=== PATIENT | male | born 1935 | race Caucasian/White ===

== ENCOUNTER 2019-11-16 08:24 | Emergency (ER) | payer MEDICARE ==
[2019-11-16 09:23] VITALS: BP 145/78; PULSE 81
[2019-11-16] MEDS ORDERED: Albuterol/Ipratropium 3.0-0.5 MG/3 ML Neb Soln NEB PRN (09:35)
--- NOTE | 2019-11-16 10:33 | CR ---
DATE OF SERVICE: 11/16/2019 CLINICAL DATA: shortness of breath PA and lateral chest: The comparison is made to a prior exam dated 16 April 2016. Heart size is normal. There is a calcification in the region of the mitral valve annulus. The cardiac pacer and pacer wires remain unchanged in position. The pulmonary vasculature appears more prominent than on the prior exam suggesting pulmonary venous congestion or fluid overload. The proximal pulmonary arteries are also prominent suggesting pulmonary hypertension. There is poorly defined ground-glass opacity in the right hilar region and right lung base suspicious for pneumonia/pneumonitis. Viral pneumonia should be considered. There are linear densities in both lower lungs consistent with linear atelectasis or fibrosis. There is thickening of the minor fissure on the right. No pneumothorax. No significant pleural effusion. The exam is otherwise unchanged from the prior. Dictated by: Stanislaw Mckeon MD 11/16/2019 10:24 AM [facility]
--- NOTE | 2019-11-16 10:48 | EDM.PDOC ---
ED HPI GENERAL MEDICAL PROBLEM - General Chief Complaint: General Stated Complaint: SOB Time Seen by Provider: 11/16/19 09:40 Source of Information: Reports: Patient History Limitations: Reports: No Limitations - History of Present Illness Onset: Other (2 days ago) Onset Date: 11/14/19 Duration: Day(s): (2 days), Getting Worse Location: Reports: Chest Quality: Reports: Other (slight tightness with breathing) Severity: Mild Improves with: Reports: None Worsens with: Reports: None Associated Symptoms: Reports: Cough, Shortness of Breath. 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 - Related Data Allergies Allergy/AdvReac Type Severity Reaction Status Date / Time Influenza Virus Vaccines Allergy Cannot Verified 04/16/16 19:48 Remember Penicillins Allergy Nausea Verified 04/16/16 19:48 Home Meds: Home Meds Aspirin [Aspirin EC] 975 mg PO DAILY PRN 02/19/13 [History] Torsemide [Demadex] 10 mg PO DAILY 30 Days #30 tablet 11/16/19 [Rx] Past Medical History HEENT History: Reports: Hard of Hearing, Impaired Vision 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, Pacemaker Respiratory History: Reports: COPD, SOB Gastrointestinal History: Reports: Chronic Diarrhea, GERD Musculoskeletal History: Reports: Osteoarthritis Neurological History: Reports: Headaches, Chronic Hematologic History: Reports: Anemia - Infectious Disease History Infectious Disease History: Reports: Chicken Pox, Influenza - Past Surgical History Musculoskeletal Surgical History: Reports: Shoulder Replacement, Shoulder Surgery Social & Family History - Family History Family Medical History: Noncontributory - Tobacco Use Smoking Status *Q: Never Smoker Second Hand Smoke Exposure: No - Caffeine Use Caffeine Use: Reports: Coffee - Recreational Drug Use Recreational Drug Use: No ED ROS GENERAL - Review of Systems Review Of Systems: See Below Constitutional: Denies: Fever, Chills, Malaise, Diaphoresis HEENT: Denies: No Symptoms Respiratory: Reports: Shortness of Breath, Cough, Sputum. Denies: Wheezing, Pleuritic Chest Pain, Hemoptysis Cardiovascular: Denies: Chest Pain, Lightheadedness GI/Abdominal: Denies: Abdominal Pain, Black Stool, Constipation, Diarrhea, Nausea, Vomiting : Denies: Flank Pain, Frequency Musculoskeletal: Reports: No Symptoms Skin: Denies: Rash, Erythema Neurological: Denies: Confusion, Headache Psychiatric: Reports: No Symptoms Hematologic/Lymphatic: Reports: No Symptoms Immunologic: Reports: No Symptoms ED EXAM, GENERAL - Physical Exam Exam: See Below Exam Limited By: No Limitations General Appearance: Alert, No Apparent Distress Ears: Normal External Exam, Normal Canal, Hearing Grossly Normal, Normal TMs Nose: Normal Inspection, Normal Mucosa Throat/Mouth: Normal Inspection, Normal Lips, Normal Gums, Normal Voice, No Airway Compromise Head: Atraumatic, Normocephalic Neck: Normal Inspection, Supple, Non-Tender, Other (NO jvd) Respiratory/Chest: No Respiratory Distress, Lungs Clear, Normal Breath Sounds, No Accessory Muscle Use, Chest Non-Tender Cardiovascular: Normal Peripheral Pulses, Regular Rate, Rhythm, Systolic Murmur GI/Abdominal: Soft, Non-Tender, No Distention, No Mass Back Exam: Normal Inspection. No: CVA Tenderness (R) Extremities: Normal Inspection, Non-Tender, No Pedal Edema Neurological: Alert, Oriented, Normal Cognition, Normal Gait, No Motor/Sensory Deficits Psychiatric: Normal Affect, Normal Mood Skin Exam: Warm, Dry, Intact, No Rash EKG INTERPRETATION EKG Date: 11/16/19 Time: 10:50 Rhythm: Other (Paced rhythm) Course - Vital Signs Last Recorded V/S: Last Vital Signs Temp 97.7 F 11/16/19 09:23 Pulse 81 11/16/19 09:23 Resp 16 11/16/19 09:23 BP 145/78 H 11/16/19 09:23 Pulse Ox 94 L 11/16/19 09:23 - Orders/Labs/Meds Labs: Laboratory Tests 11/16/19 11/16/19 11/16/19 Range/Units 08:45 09:45 09:45 WBC 10.8 (4.0-11.0) K/uL RBC 4.90 (4.50-6.50) M/uL Hgb 14.8 (13.0-18.0) g/dL Hct 42.7 (40.0-54.0) % MCV 87 (76-96) fL MCH 30.2 (27.0-32.0) pg MCHC 34.7 (31.0-35.0) g/dL RDW 12.7 (11.0-16.0) % Plt Count 176 D (150-400) K/uL MPV 9.4 (6.0-10.0) fL Neut % (Auto) 80.6 H (45.0-70.0) % Lymph % (Auto) 9.0 L (20.0-40.0) % Scurry % (Auto) 7.1 (3.0-10.0) % Eos % (Auto) 3.0 (1.0-5.0) % Baso % (Auto) 0.3 (0.0-0.5) % Neut # (Auto) 8.69 H (2.00-7.50) K/uL Lymph # (Auto) 0.97 L (1.50-4.00) K/uL Scurry # (Auto) 0.77 (0.20-0.80) K/uL Eos # (Auto) 0.32 (0.04-0.40) K/uL Baso # (Auto) 0.03 (0.02-0.10) K/uL Sodium 141 (136-145) mmol/L Potassium 4.5 (3.5-5.1) mmol/L Chloride 106 (98-107) mmol/L Carbon Dioxide 25.7 (21.0-32.0) mmol/L Anion Gap 13.8 (5.0-15.0) mmol/L BUN 14 (8-26) mg/dL Creatinine 1.02 (0.70-1.30) mg/dL Est Cr Clr Drug Dosing TNP Estimated GFR (MDRD) > 60 (>60) MLS/MIN BUN/Creatinine Ratio 13.7 (6-25) Glucose 107 H (74-100) mg/dL Calcium 8.1 L (8.5-10.1) mg/dL Troponin I (0.000-0.060) ng/mL B-Natriuretic Peptide 1737 H D (0-450) pg/mL COVID-19 (ELEANOR) Negative 11/16/19 Range/Units 10:48 WBC (4.0-11.0) K/uL RBC (4.50-6.50) M/uL Hgb (13.0-18.0) g/dL Hct (40.0-54.0) % MCV (76-96) fL MCH (27.0-32.0) pg MCHC (31.0-35.0) g/dL RDW (11.0-16.0) % Plt Count (150-400) K/uL MPV (6.0-10.0) fL Neut % (Auto) (45.0-70.0) % Lymph % (Auto) (20.0-40.0) % Scurry % (Auto) (3.0-10.0) % Eos % (Auto) (1.0-5.0) % Baso % (Auto) (0.0-0.5) % Neut # (Auto) (2.00-7.50) K/uL Lymph # (Auto) (1.50-4.00) K/uL Scurry # (Auto) (0.20-0.80) K/uL Eos # (Auto) (0.04-0.40) K/uL Baso # (Auto) (0.02-0.10) K/uL Sodium (136-145) mmol/L Potassium (3.5-5.1) mmol/L Chloride (98-107) mmol/L Carbon Dioxide (21.0-32.0) mmol/L Anion Gap (5.0-15.0) mmol/L BUN (8-26) mg/dL Creatinine (0.70-1.30) mg/dL Est Cr Clr Drug Dosing Estimated GFR (MDRD) (>60) MLS/MIN BUN/Creatinine Ratio (6-25) Glucose (74-100) mg/dL Calcium (8.5-10.1) mg/dL Troponin I < 0.017 (0.000-0.060) ng/mL B-Natriuretic Peptide (0-450) pg/mL COVID-19 (ELEANOR) Meds: Medications Discontinued Medications Generic Name Dose Route Start Last Admin Trade Name Freq PRN Reason Stop Dose Admin Albuterol/Ipratropium 3 ml 11/16/19 09:35 11/16/19 10:00 Duoneb 3.0-0.5 Mg/3 Ml NEB 11/16/19 23:59 3 ml Q2H PRN Administration Shortness of Breath Torsemide 10 mg 11/16/19 11:00 11/16/19 11:08 Demadex PO 10 mg DAILY SUELLEN Administration - Radiology Interpretation Free Text/Narrative:: See report with pulmonary vasculature with more prominence than prior exam suggesting venous congestion or fluid overload. Prominent pulmonary arteries suggesting pulmonary hyptertension. Suspicious for pneumonia /pneumonitis . Atelectasis vs fibrosis in lower lung bradley. - Re-Assessments/Exams Free Text/Narrative Re-Assessment/Exam: 11/16/19 12:16 [place] [facility] patient was stable .CXR consistent with early pneumonia and mild CHF by my reading. Slight elevation of neutrophil count . Elevated BMP consistent with mild CHF Patient treated with Duo neb with minimal relief of symptoms Will start Trosemide 10 mg po daily Zithromax Z pack and follow up with clinic next week Potassium level prior to appt Order sent to lab Appt made for next week Departure - Departure Time of Disposition: 11:01 Disposition: Home, Self-Care 01 Condition: Good (Acute bronhitis) Clinical Impression: CHF, Congestive heart failure, Bronchitis - Discharge Information *PRESCRIPTION DRUG MONITORING PROGRAM REVIEWED*: Not Applicable *COPY OF PRESCRIPTION DRUG MONITORING REPORT IN PATIENT ALEXANDER: Not Applicable Prescriptions: Torsemide [Demadex] 10 mg PO DAILY 30 Days #30 tablet Instructions: Heart Failure, Self Care, Heart Failure, Self Care, [id number], Acute Bronchitis, Adult, [id number] Referrals: PCP,None [Primary Care Provider] - Forms: ED Department Discharge Additional Instructions: Diagnosis Acute Bronchitis possible early pneumonia Congestive heart failure mild PLan Will treat you with Zithromax an antibiotic . Take 2 tablets on the first day than 1 tablet daily for 4 more days Will also start a water pill. You need to take this water pill until discontinued by your regular MD Have your potassium checked next week in clinic during follow up visit next Wednesday. Return for increasing SOB or chest pain or other worsening The water pill lower your potassium level so you will need to have this checked at next visit to clinic Use your MDI 2 puff every 4-6 hours as needed for SOB/wheezing Care Plan Goals: Take medications as prescribed. Return to hospital or clinic if symptoms persist or worsen. Call with any questions or concerns. Sepsis Event Note (ED) - Evaluation Sepsis Screening Result: No Definite Risk
[2019-11-16] MEDS ORDERED: Torsemide 20 MG Tab PO SCH (11:00)
== END 2019-11-16 11:35 | disposition home or self-care (01) ==
LOC: LB.ED 08:24
DX: I50.9 Heart failure, unspecified (principal); J40 Bronchitis, not specified as acute or chronic; J44.9 Chronic obstructive pulmonary disease, unspecified; Z20.828 Contact with and (suspected) exposure to other viral communicable diseases; Z88.7 Allergy status to serum and vaccine; Z88.0 Allergy status to penicillin; Z79.82 Long term (current) use of aspirin
CPT/HCPCS: 36415; 71046; 80048; 83880; 84484; 85025; 93005; 99285; A9270; U0002; J7620-GY

== ENCOUNTER 2020-02-24 19:41 | Emergency (ER) | payer MEDICARE ==
[~2020-02-24 19:41] MED LIST: Ondansetron 4 MG Tab.DIS ONE
[2020-02-24] MEDS: Ketorolac 30 MG/ML SDV IM ONE (21:13)
--- NOTE | 2020-02-24 21:23 | EDM.PDOC ---
ED HPI GENERAL MEDICAL PROBLEM - General Chief Complaint: Respiratory Problem Stated Complaint: dyspnea Time Seen by Provider: 02/24/20 21:00 Source of Information: Reports: Patient History Limitations: Reports: No Limitations - History of Present Illness INITIAL COMMENTS - FREE TEXT/NARRATIVE: Patient is an 85 y/o male who presents with a frontal headache x 2 days and one episode of vomiting yesterday. He denies any fever, chills, sweats, nausea, abdominal pain, SOB, chest pain, or abd pain. He took an OTC medicine for his headache which improved it significantly. No known exposure to COVID positive contacts. - Related Data Allergies Allergy/AdvReac Type Severity Reaction Status Date / Time Influenza Virus Vaccines Allergy Cannot Verified 02/24/20 21:07 Remember Penicillins Allergy Nausea Verified 02/24/20 21:07 Home Meds: Home Meds Albuterol Sulfate [Albuterol Sulfate Hfa] 1 - 2 puff IH DAILY 02/24/20 [History] Past Medical History HEENT History: Reports: Hard of Hearing, Impaired Vision 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, Pacemaker Respiratory History: Reports: COPD, SOB Gastrointestinal History: Reports: Chronic Diarrhea, GERD Musculoskeletal History: Reports: Osteoarthritis Neurological History: Reports: Headaches, Chronic Hematologic History: Reports: Anemia - Infectious Disease History Infectious Disease History: Reports: Chicken Pox, Influenza - Past Surgical History Musculoskeletal Surgical History: Reports: Shoulder Replacement, Shoulder Surgery Social & Family History - Family History Family Medical History: No Pertinent Family History - Caffeine Use Caffeine Use: Reports: Coffee ED ROS GENERAL - Review of Systems Review Of Systems: See Below Constitutional: Reports: No Symptoms HEENT: Reports: No Symptoms Respiratory: Reports: No Symptoms Cardiovascular: Reports: No Symptoms GI/Abdominal: Reports: Vomiting : Reports: No Symptoms Musculoskeletal: Reports: No Symptoms Skin: Reports: No Symptoms Neurological: Reports: Headache ED EXAM, GENERAL - Physical Exam Exam: See Below Exam Limited By: No Limitations General Appearance: Alert, No Apparent Distress Eye Exam: Bilateral Eye: EOMI, PERRL Head: Atraumatic, Normocephalic Neck: Normal Inspection, Supple, Non-Tender, Full Range of Motion Respiratory/Chest: No Respiratory Distress, Lungs Clear, Normal Breath Sounds, No Accessory Muscle Use, Chest Non-Tender Cardiovascular: Normal Peripheral Pulses, Regular Rate, Rhythm, No Edema, No Murmur GI/Abdominal: Normal Bowel Sounds, Soft, Non-Tender, No Distention Neurological: Alert, Oriented, CN II-XII Intact, Normal Cognition, Normal Gait, No Motor/Sensory Deficits Psychiatric: Normal Affect, Normal Mood Skin Exam: Warm, Dry, Intact, Normal Color, No Rash Course - Vital Signs Text/Narrative:: toradol 15 mg IM given. Patient sent home with zofran for any nausea/vomiting. Return to the ED for fever >102, unable to tolerate fluids, or difficulty breathing/swallowing. - Orders/Labs/Meds Labs: Laboratory Tests 02/24/20 Range/Units 20:23 SARS CoV-2 RNA Rapid ELEANOR Negative Meds: Medications Discontinued Medications Generic Name Dose Route Start Last Admin Trade Name Freq PRN Reason Stop Dose Admin Ketorolac Tromethamine 15 mg 02/24/20 21:13 Toradol IM 02/24/20 21:14 ONETIME ONE Departure - Departure Time of Disposition: 21:21 Disposition: Home, Self-Care 01 Condition: Good Clinical Impression: Headache Qualifiers: Headache type: unspecified Headache chronicity pattern: acute headache Intractability: not intractable Qualified Code(s): R51.9 - Headache, unspecified - Discharge Information *PRESCRIPTION DRUG MONITORING PROGRAM REVIEWED*: Not Applicable *COPY OF PRESCRIPTION DRUG MONITORING REPORT IN PATIENT ALEXANDER: Not Applicable Instructions: Ondansetron oral dissolving tablet Forms: ED Department Discharge Additional Instructions: Take provided Zofran as instructed: 1 tablet dissolved under tongue every 6 hours as needed for nausea. Drink plenty of fluids (water, Gatorade) and get plenty of rest. Diet and activity as tolerated. Should symptoms worsen or persist, return for further evaluation and treatment. Do not take any ibuprofen or motrin until after 8am tomorrow morning. Call with any questions.
[2020-02-24 22:06] VITALS: BP 165/90; PULSE 77
== END 2020-02-24 21:20 | disposition home or self-care (01) ==
LOC: LB.ED 19:41
DX: R51.9 Headache, unspecified (principal); R11.10 Vomiting, unspecified; J44.9 Chronic obstructive pulmonary disease, unspecified; Z88.0 Allergy status to penicillin; Z88.7 Allergy status to serum and vaccine
CPT/HCPCS: 96372; 99284; A9270-GY; J1885; U0002

== ENCOUNTER 2020-03-30 11:49 | Emergency (ER) | payer MEDICARE ==
[2020-03-30] MEDS: Nitroglycerin 0.4 MG Tab.SL SL ONE (12:25)
[2020-03-30] MEDS ORDERED: Nitroglycerin 0.4 MG Tab.SL ONE (12:40)
--- NOTE | 2020-03-30 13:05 | EDM.PDOC ---
ED HPI GENERAL MEDICAL PROBLEM - General Chief Complaint: Chest Pain Stated Complaint: Chest Pain Time Seen by Provider: 03/30/20 12:35 Source of Information: Reports: Patient History Limitations: Reports: No Limitations - History of Present Illness INITIAL COMMENTS - FREE TEXT/NARRATIVE: patient presented to the ER with a c/o chest discomfort and dyspnea. no h/o CAD or stents in the past. 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 no fever or chills. Reports this occurred after brunch, on his way to his couch. Pain described as burning sensation for which he took Tums, didn't help much. After arrival to the ER, his pain resolved after a nitro SL x1 He lives at home with . Denies any chronic medical problems, except for pacemaker placement 10 yrs ago after an episode of syncope. Onset: Today - Related Data Allergies Allergy/AdvReac Type Severity Reaction Status Date / Time Influenza Virus Vaccines Allergy Cannot Verified 02/24/20 21:07 Remember Penicillins Allergy Nausea Verified 02/24/20 21:07 Home Meds: Home Meds Albuterol Sulfate [Albuterol Sulfate Hfa] 1 - 2 puff IH DAILY 02/24/20 [History] Past Medical History HEENT History: Reports: Hard of Hearing, Impaired Vision 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, Pacemaker Respiratory History: Reports: COPD, SOB Gastrointestinal History: Reports: Chronic Diarrhea, GERD Musculoskeletal History: Reports: Osteoarthritis Neurological History: Reports: Headaches, Chronic Hematologic History: Reports: Anemia - Infectious Disease History Infectious Disease History: Reports: Chicken Pox, Influenza - Past Surgical History Musculoskeletal Surgical History: Reports: Shoulder Replacement, Shoulder Surgery Social & Family History - Family History Family Medical History: No Pertinent Family History - Caffeine Use Caffeine Use: Reports: Coffee ED ROS GENERAL - Review of Systems Review Of Systems: See Below Constitutional: Reports: No Symptoms. Denies: Fever, Chills, Malaise HEENT: Reports: No Symptoms Respiratory: Reports: Shortness of Breath Cardiovascular: Reports: Chest Pain, Dyspnea on Exertion. Denies: Edema, Palpitations, Syncope GI/Abdominal: Reports: No Symptoms Skin: Reports: No Symptoms Neurological: Reports: No Symptoms ED EXAM, GENERAL - Physical Exam Exam: See Below Exam Limited By: No Limitations General Appearance: Alert, WD/WN, No Apparent Distress Eye Exam: Bilateral Eye: EOMI Throat/Mouth: Normal Inspection Head: Atraumatic, Normocephalic Neck: Normal Inspection Cardiovascular: Normal Peripheral Pulses, Regular Rate, Rhythm, No Edema Back Exam: Normal Inspection Neurological: Alert, Oriented, Normal Cognition, No Motor/Sensory Deficits Psychiatric: Normal Affect, Normal Mood Skin Exam: Warm Course - Vital Signs Last Recorded V/S: Last Vital Signs Temp 36.5 C 03/30/20 12:20 Pulse 66 03/30/20 12:20 Resp 28 H 03/30/20 12:20 BP 144/77 H 03/30/20 12:25 Pulse Ox 95 03/30/20 12:20 - Orders/Labs/Meds Orders: Active Orders 24 hr Category Date Time Status EKG Documentation Completion [RC] ASDIRECTED Care 03/30/20 12:37 Active RT Aerosol Therapy [RC] ASDIRECTED Care 03/30/20 12:56 Active Chest 1V Frontal [CR] Stat Exams 03/30/20 12:36 Taken Labs: Laboratory Tests 03/30/20 03/30/20 03/30/20 Range/Units 12:36 12:36 13:30 WBC 8.6 D (4.0-11.0) K/uL RBC 5.03 (4.50-6.50) M/uL Hgb 14.7 (13.0-18.0) g/dL Hct 42.5 (40.0-54.0) % MCV 85 (76-96) fL MCH 29.2 (27.0-32.0) pg MCHC 34.6 (31.0-35.0) g/dL RDW 12.6 (11.0-16.0) % Plt Count 187 (150-400) K/uL MPV 10.3 H (6.0-10.0) fL D-Dimer, Quantitative 261 (0-400) ng/mL Sodium 140 (136-145) mmol/L Potassium 4.4 (3.5-5.1) mmol/L Chloride 105 (98-107) mmol/L Carbon Dioxide 27.4 (21.0-32.0) mmol/L Anion Gap 12.0 (5.0-15.0) mmol/L BUN 19 (8-26) mg/dL Creatinine 1.22 (0.70-1.30) mg/dL Est Cr Clr Drug Dosing TNP Estimated GFR (MDRD) 56 L (>60) MLS/MIN BUN/Creatinine Ratio 15.6 (6-25) Glucose 125 H D (74-100) mg/dL Calcium 9.0 (8.5-10.1) mg/dL Total Bilirubin 0.6 (0.0-1.0) mg/dL AST 40 H (15-37) U/L ALT 78 (12-78) U/L Alkaline Phosphatase 60 (46-116) U/L Troponin I < 0.017 (0.000-0.060) ng/mL Total Protein 6.6 (6.4-8.2) g/dL Albumin 3.8 (3.4-5.0) g/dL Globulin 2.8 (2.2-4.2) g/dL Albumin/Globulin Ratio 1.4 (0.8-2.0) 03/30/20 Range/Units 15:30 WBC (4.0-11.0) K/uL RBC (4.50-6.50) M/uL Hgb (13.0-18.0) g/dL Hct (40.0-54.0) % MCV (76-96) fL MCH (27.0-32.0) pg MCHC (31.0-35.0) g/dL RDW (11.0-16.0) % Plt Count (150-400) K/uL MPV (6.0-10.0) fL D-Dimer, Quantitative (0-400) ng/mL Sodium (136-145) mmol/L Potassium (3.5-5.1) mmol/L Chloride (98-107) mmol/L Carbon Dioxide (21.0-32.0) mmol/L Anion Gap (5.0-15.0) mmol/L BUN (8-26) mg/dL Creatinine (0.70-1.30) mg/dL Est Cr Clr Drug Dosing Estimated GFR (MDRD) (>60) MLS/MIN BUN/Creatinine Ratio (6-25) Glucose (74-100) mg/dL Calcium (8.5-10.1) mg/dL Total Bilirubin (0.0-1.0) mg/dL AST (15-37) U/L ALT (12-78) U/L Alkaline Phosphatase (46-116) U/L Troponin I < 0.017 (0.000-0.060) ng/mL Total Protein (6.4-8.2) g/dL Albumin (3.4-5.0) g/dL Globulin (2.2-4.2) g/dL Albumin/Globulin Ratio (0.8-2.0) Meds: Medications Discontinued Medications Generic Name Dose Route Start Last Admin Trade Name Freq PRN Reason Stop Dose Admin Albuterol/Ipratropium 3 ml 03/30/20 12:55 03/30/20 13:12 Duoneb 3.0-0.5 Mg/3 Ml NEB 03/30/20 12:56 3 ml NOW STA Administration Aspirin 162 mg 03/30/20 12:55 03/30/20 13:12 Aspirin PO 03/30/20 12:56 162 mg NOW STA Administration Nitroglycerin 0.4 mg 03/30/20 12:56 03/30/20 12:25 Nitrostat SL 03/30/20 12:57 0.4 mg ONETIME ONE Administration - Re-Assessments/Exams Free Text/Narrative Re-Assessment/Exam: upon arrival, was connected to a monitor EKG acute ischemic changes but findings c/w pacemaker NTG SL was given - symptoms resolved CXR WNL Labs including trop - negative patient was monitored in the ER, and a neb was given due to a h/o COPD and SOB. Trop was trended x2 - still WNL, and patient is asymptomatic. Ambulated 200ft in the ER, no SOB, CP or hypoxia. was d/cd home with the plan to discuss a stress test with PCP. Also was prescribed nitro-SL PRN CP. Departure - Departure Time of Disposition: 16:54 Disposition: Home, Self-Care 01 Condition: Good Clinical Impression: Angina pectoris without myocardial infarction Instructions: Angina, [id number] Forms: ED Department Discharge Additional Instructions: - take 2 tabs of aspirin on a daily basis - follow up with your PCP in 1-2 weeks - discuss obtaining a stress test - take nitro glycerin as needed for chest pain. wait for 5 min before taking another one. Then call 911 or come to the ER if chest pain persisted Sepsis Event Note (ED) - Focused Exam Vital Signs: Vital Signs Temp Pulse Resp BP BP Pulse Ox 03/30/20 12:25 144/77 H 03/30/20 12:20 36.5 C 66 28 H 144/77 H 95 - Problem List & Annotations (1) Angina pectoris without myocardial infarction SNOMED Code(s): 166951820 Code(s): I20.9 - ANGINA PECTORIS, UNSPECIFIED Status: Acute Priority: Low - Problem List Review Problem List Initiated/Reviewed/Updated: Yes - My Orders Last 24 Hours: My Active Orders 03/30/20 12:36 Chest 1V Frontal [CR] Stat 03/30/20 12:37 EKG Documentation Completion [RC] ASDIRECTED 03/30/20 12:56 RT Aerosol Therapy [RC] ASDIRECTED - Assessment/Plan Last 24 Hours: My Active Orders 03/30/20 12:36 Chest 1V Frontal [CR] Stat 03/30/20 12:37 EKG Documentation Completion [RC] ASDIRECTED 03/30/20 12:56 RT Aerosol Therapy [RC] ASDIRECTED Plan: - take 2 tabs of aspirin on a daily basis - follow up with your PCP in 1-2 weeks - discuss obtaining a stress test - take nitro glycerin as needed for chest pain. wait for 5 min before taking another one. Then call 911 or come to the ER if chest pain persisted
[2020-03-30] MEDS: Albuterol/Ipratropium 3.0-0.5 MG/3 ML Neb Soln NEB STA (13:12)
[2020-03-30] MEDS: Aspirin 81 MG Tab.Chew PO STA (13:12)
[2020-03-30 13:13] VITALS: BP 144/77
[2020-03-30 13:14] VITALS: PULSE 66
--- NOTE | 2020-03-30 17:33 | CR ---
CLINICAL DATA: Chest pain. AP CHEST, 30 MARCH 2020: Comparison is made to a prior exam dated 13 March 2020. A cardiac pacer and pacer wires remain unchanged in position. The heart size is normal. There is calcification in the region of the mitral valve annulus. There is calcification at the aortic arch. The pulmonary vasculature does appear to be slightly more prominent than on the prior exam, suggesting mild pulmonary venous congestion. There is a persistent poorly defined ground-glass opacity lateral to the right hilum, unchanged. The lungs are otherwise unchanged. No pneumothorax. No pleural effusions. Job: [id number] MTDD
== END 2020-03-30 17:12 | disposition home or self-care (01) ==
LOC: LB.ED 11:49
DX: I20.9 Angina pectoris, unspecified (principal); J44.9 Chronic obstructive pulmonary disease, unspecified; Z88.7 Allergy status to serum and vaccine; Z88.0 Allergy status to penicillin
CPT/HCPCS: 36415; 71045; 80053; 84484; 85027; 85379; 93005; 99284; 99285-25; A9270-GY; J7620-GY

== ENCOUNTER 2020-11-20 11:26 | Emergency (ER) | payer MEDICARE ==
[2020-11-20 12:25] VITALS: BP 111/61; PULSE 73
--- NOTE | 2020-11-20 14:20 | EDM.PDOC ---
ED HPI GENERAL MEDICAL PROBLEM - General Chief Complaint: Respiratory Problem Stated Complaint: SHORTNESS OF BREATH Time Seen by Provider: 11/20/20 11:43 Source of Information: Reports: Patient History Limitations: Reports: No Limitations - History of Present Illness Onset: Gradual Duration: Getting Worse - Related Data Allergies Allergy/AdvReac Type Severity Reaction Status Date / Time Influenza Virus Vaccines Allergy Cannot Verified 02/24/20 21:07 Remember Penicillins Allergy Nausea Verified 02/24/20 21:07 Home Meds: Home Meds Albuterol Sulfate [Albuterol Sulfate Hfa] 1 - 2 puff IH DAILY 02/24/20 [History] Acetaminophen [Tylenol] 650 mg PO DAILY PRN 05/10/20 [History] Ascorbic Acid [Vitamin C] 1 cap PO DAILY 05/10/20 [History] Aspirin 81 mg PO DAILY 05/10/20 [History] Aspirin [Lite Coat Aspirin] 325 mg PO DAILY PRN 05/10/20 [History] Betamethasone/Propylene Glyc [Betamethasone DP Aug 0.05%] 1 applic TRDERM DAILY 05/10/20 [History] Cholecalciferol (Vitamin D3) [Vitamin D] 5,000 unit PO DAILY 05/10/20 [History] Cyanocobalamin (Vitamin B12) [Vitamin B12] 1 cap PO DAILY 05/10/20 [History] Furosemide 20 mg PO DAILY 05/10/20 [History] Glucosam/Chond-Msm1/C/Donta/Bor [Fhsuadv-Hbyuj-LTU Complex Cplt] 1 tab PO DAILY 05/10/20 [History] Isosorbide Mononitrate [Imdur] 30 mg PO DAILY 05/10/20 [History] Multivit with Iron,Minerals [Flintstones Complete] 1 cap PO DAILY 05/10/20 [History] [place]-3/DHA/Epa/Fish Oil [Fish Oil EC 1,000 MG Softgel] 1 cap PO DAILY 05/10/20 [History] Vitamin E 1 cap PO DAILY 05/10/20 [History] Azithromycin [Zithromax] 250 mg PO DAILY 5 Days #6 tab 11/20/20 [Rx] Past Medical History HEENT History: Reports: Hard of Hearing, Impaired Vision 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, Pacemaker Other Cardiovascular History: CHF Respiratory History: Reports: COPD, SOB Gastrointestinal History: Reports: Chronic Diarrhea, GERD Musculoskeletal History: Reports: Osteoarthritis Neurological History: Reports: Headaches, Chronic Hematologic History: Reports: Anemia - Infectious Disease History Infectious Disease History: Reports: Chicken Pox, Influenza - Past Surgical History Musculoskeletal Surgical History: Reports: Shoulder Replacement, Shoulder Surgery Social & Family History - Family History Family Medical History: No Pertinent Family History - Caffeine Use Caffeine Use: Reports: Coffee ED ROS GENERAL - Review of Systems Review Of Systems: See Below Constitutional: Denies: Fever HEENT: Reports: No Symptoms Respiratory: Reports: Shortness of Breath, Cough, Sputum Cardiovascular: Denies: Chest Pain GI/Abdominal: Reports: No Symptoms Musculoskeletal: Reports: No Symptoms Skin: Reports: No Symptoms Neurological: Reports: No Symptoms ED EXAM, GENERAL - Physical Exam Exam: See Below Exam Limited By: No Limitations General Appearance: No Apparent Distress Eye Exam: Bilateral Eye: Normal Inspection, PERRL Ears: Normal External Exam Nose: Normal Inspection Throat/Mouth: Normal Inspection Head: Atraumatic, Normocephalic Neck: Normal Inspection, Full Range of Motion Respiratory/Chest: No Respiratory Distress, Chest Non-Tender, Decreased Breath Sounds (bilateral bases), Crackles (bilateral bases) Cardiovascular: Regular Rate, Rhythm Extremities: Normal Inspection Neurological: Alert, Oriented Skin Exam: Warm, Dry Course - Vital Signs Last Recorded V/S: Last Vital Signs Temp 36.6 C 11/20/20 11:30 Pulse 73 11/20/20 11:30 Resp 18 11/20/20 11:30 BP 111/61 11/20/20 11:30 Pulse Ox 93 L 11/20/20 11:30 - Orders/Labs/Meds Orders: Active Orders 24 hr Category Date Time Status EKG Documentation Completion [RC] ASDIRECTED Care 11/20/20 12:08 Active Chest 2V [CR] Stat Exams 11/20/20 12:08 Taken EKG 12 Lead [EK] Routine Ther 11/20/20 12:08 Ordered Departure - Departure Time of Disposition: 14:11 Disposition: Home, Self-Care 01 Condition: Good Clinical Impression: Pneumonia - Discharge Information *PRESCRIPTION DRUG MONITORING PROGRAM REVIEWED*: Not Applicable *COPY OF PRESCRIPTION DRUG MONITORING REPORT IN PATIENT ALEXANDER: Not Applicable Prescriptions: Azithromycin [Zithromax] 250 mg PO DAILY 5 Days #6 tab Instructions: Community-Acquired Pneumonia, Child, [id number] Referrals: Paul Sams MD [Primary Care Provider] - Forms: ED Department Discharge Additional Instructions: Discharge home. Follow up in the clinic. Sepsis Event Note (ED) - Focused Exam Vital Signs: Vital Signs Temp Pulse Resp BP Pulse Ox 11/20/20 11:30 36.6 C 73 18 111/61 93 L - My Orders Last 24 Hours: My Active Orders 11/20/20 12:08 EKG Documentation Completion [RC] ASDIRECTED Chest 2V [CR] Stat EKG 12 Lead [EK] Routine - Assessment/Plan Last 24 Hours: My Active Orders 11/20/20 12:08 EKG Documentation Completion [RC] ASDIRECTED Chest 2V [CR] Stat EKG 12 Lead [EK] Routine
--- NOTE | 2020-11-20 15:34 | CR ---
DATE OF SERVICE: 11/20/2020 CLINICAL DATA: SOB PA and lateral chest: No priors. The heart size is at the upper limits of normal. There is calcification in the region of the mitral valve annulus. There is a cardiac pacer overlying the left chest in the distal pacer wires are in the region the right atrium and right ventricle. There is calcification of the aortic arch. The pulmonary vasculature is mildly prominent suggesting mild pulmonary venous congestion or mild fluid overload. The lungs are hyperexpanded. There is mild thickening of the minor fissure on the right. The lungs are otherwise clear. No pneumothorax. No pleural effusions. There is degenerative disc disease throughout the thoracic spine. MTDD
== END 2020-11-20 14:45 | disposition home or self-care (01) ==
LOC: LB.ED 11:26
DX: J18.9 Pneumonia, unspecified organism (principal); J44.9 Chronic obstructive pulmonary disease, unspecified; Z95.1 Presence of aortocoronary bypass graft; Z88.7 Allergy status to serum and vaccine; Z88.0 Allergy status to penicillin; Z79.82 Long term (current) use of aspirin
CPT/HCPCS: 71046; 93005; 99283; 99285-25

== ENCOUNTER 2020-12-28 11:55 | Emergency (ER) | payer MEDICARE ==
--- NOTE | 2020-12-28 12:22 | EDM.PDOC ---
ED HPI GENERAL MEDICAL PROBLEM - General Chief Complaint: General Stated Complaint: Difficulty swallowin Time Seen by Provider: 12/28/20 11:55 Source of Information: Reports: Patient History Limitations: Reports: No Limitations - History of Present Illness INITIAL COMMENTS - FREE TEXT/NARRATIVE: This patient presents to the emergency department for evaluation of difficulty swallowing. He states that when he was having breakfast at approximately 10 AM today he had difficulty swallowing solid foods and that it ran out of his mouth. He states he did not have any difficulty swallowing liquids. He presents to the ER because he believes he is having a stroke. He denies any headache, chest pain, nausea, vomiting, diarrhea. He denies any recent illnesses, other symptoms or concerns. - Related Data Allergies Allergy/AdvReac Type Severity Reaction Status Date / Time Influenza Virus Vaccines Allergy Cannot Verified 02/24/20 21:07 Remember Penicillins Allergy Nausea Verified 02/24/20 21:07 Home Meds: Home Meds Albuterol Sulfate [Albuterol Sulfate Hfa] 1 - 2 puff IH DAILY 02/24/20 [History] Acetaminophen [Tylenol] 650 mg PO DAILY PRN 05/10/20 [History] Ascorbic Acid [Vitamin C] 1 cap PO DAILY 05/10/20 [History] Aspirin 81 mg PO DAILY 05/10/20 [History] Aspirin [Lite Coat Aspirin] 325 mg PO DAILY PRN 05/10/20 [History] Betamethasone/Propylene Glyc [Betamethasone DP Aug 0.05%] 1 applic TRDERM DAILY 05/10/20 [History] Cholecalciferol (Vitamin D3) [Vitamin D] 5,000 unit PO DAILY 05/10/20 [History] Cyanocobalamin (Vitamin B12) [Vitamin B12] 1 cap PO DAILY 05/10/20 [History] Furosemide 20 mg PO DAILY 05/10/20 [History] Glucosam/Chond-Msm1/C/Donta/Bor [Gpsrtbt-Gexks-[facility] Complex Cplt] 1 tab PO DAILY 05/10/20 [History] Isosorbide Mononitrate [Imdur] 30 mg PO DAILY 05/10/20 [History] Multivit with Iron,Minerals [Flintstones Complete] 1 cap PO DAILY 05/10/20 [History] [place]-3/DHA/Epa/Fish Oil [Fish Oil EC 1,000 MG Softgel] 1 cap PO DAILY 05/10/20 [History] Vitamin E 1 cap PO DAILY 05/10/20 [History] Azithromycin [Zithromax] 250 mg PO DAILY 5 Days #6 tab 11/20/20 [Rx] Past Medical History HEENT History: Reports: Hard of Hearing, Impaired Vision 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, Pacemaker Other Cardiovascular History: CHF Respiratory History: Reports: COPD, SOB Gastrointestinal History: Reports: Chronic Diarrhea, GERD Musculoskeletal History: Reports: Osteoarthritis Neurological History: Reports: Headaches, Chronic Hematologic History: Reports: Anemia - Infectious Disease History Infectious Disease History: Reports: Chicken Pox, Influenza - Past Surgical History Musculoskeletal Surgical History: Reports: Shoulder Replacement, Shoulder Surgery Social & Family History - Family History Family Medical History: No Pertinent Family History - Caffeine Use Caffeine Use: Reports: Coffee ED ROS GENERAL - Review of Systems Review Of Systems: Comprehensive ROS is negative, except as noted in HPI. ED EXAM, GENERAL - Physical Exam Exam: See Below Exam Limited By: No Limitations General Appearance: Alert, No Apparent Distress Eye Exam: Bilateral Eye: Normal Inspection, PERRL Ears: Normal External Exam Nose: Normal Inspection Throat/Mouth: Normal Inspection. No: Dysphagia (Patient given glass of water and was able to drink from the glass and with a straw without any choking or dribbling.) Head: Atraumatic, Normocephalic Neck: Normal Inspection, Non-Tender, Full Range of Motion Respiratory/Chest: No Respiratory Distress, Lungs Clear, Normal Breath Sounds, No Accessory Muscle Use Cardiovascular: Regular Rate, Rhythm GI/Abdominal: Normal Bowel Sounds, Soft, Non-Tender, No Distention Neurological: Alert, Oriented, Normal Cognition. No: Confused, Abnormal Gait, Sensory/Motor Deficit Psychiatric: Normal Affect Skin Exam: Warm, Dry, Intact, Normal Color Course - Re-Assessments/Exams Free Text/Narrative Re-Assessment/Exam: 12/28/20 12:28 This patient presents to the emergency department for concerns of stroke. Evaluation of the patient does not identify any neurological deficits either globally or focally. He was able to drink fluids without choking or dribbling. It is possible that he had a TIA at home causing the symptoms but at this time there is no evidence of a stroke, TIA, infection, metabolic, neurologic or cardiovascular deficits. He ambulated independently with a steady gait. He was discharged to home with a normal physical exam and will follow up as needed. Departure - Departure Time of Disposition: 12:15 Disposition: Home, Self-Care 01 Condition: Good Clinical Impression: Dysphagia - Discharge Information *PRESCRIPTION DRUG MONITORING PROGRAM REVIEWED*: Not Applicable *COPY OF PRESCRIPTION DRUG MONITORING REPORT IN PATIENT ALEXANDER: Not Applicable Instructions: Dysphagia Forms: ED Department Discharge Additional Instructions: Return to ED if symptoms return
== END 2020-12-28 12:12 | disposition home or self-care (01) ==
LOC: LB.ED 11:55
DX: R13.10 Dysphagia, unspecified (principal); I50.9 Heart failure, unspecified; J44.9 Chronic obstructive pulmonary disease, unspecified; Z88.0 Allergy status to penicillin; Z88.7 Allergy status to serum and vaccine; Z79.899 Other long term (current) drug therapy; Z79.82 Long term (current) use of aspirin
CPT/HCPCS: 99283

== ENCOUNTER 2021-03-03 13:28 | Emergency (ER) | payer MEDICARE ==
[2021-03-03] MEDS: Bamlanivimab 700 MG, ETESEVIMAB 1,400 MG in Sodium Chloride 0.9% 100 ML IV SCH (15:03)
[2021-03-03 15:56] VITALS: PULSE 62
[2021-03-03] MEDS ORDERED: Azithromycin 250 MG Tab ONE (16:00)
[2021-03-03 16:01] VITALS: BP 135/78
--- NOTE | 2021-03-03 16:14 | EDM.PDOC ---
ED HPI GENERAL MEDICAL PROBLEM - General Chief Complaint: Respiratory Problem Stated Complaint: COUGH AND COLD SX Time Seen by Provider: 03/03/21 13:43 - History of Present Illness INITIAL COMMENTS - FREE TEXT/NARRATIVE: Pt brings his to the ER today for weakness that has been going on for a couple months. While waiting for her he decides he should be seen for a cough and chest congestion he has had for over 2 weeks. Cough is productive at times of clear to white color sputum. No SOB, WHEEZING, or fever. - Related Data Allergies Allergy/AdvReac Type Severity Reaction Status Date / Time Influenza Virus Vaccines Allergy Cannot Verified 03/03/21 13:42 Remember Penicillins Allergy Nausea Verified 03/03/21 13:42 Home Meds: Home Meds Albuterol Sulfate [Albuterol Sulfate Hfa] 1 - 2 puff IH DAILY 02/24/20 [History] Acetaminophen [Tylenol] 650 mg PO DAILY PRN 05/10/20 [History] Ascorbic Acid [Vitamin C] 1 cap PO DAILY 05/10/20 [History] Aspirin 81 mg PO DAILY 05/10/20 [History] Cholecalciferol (Vitamin D3) [Vitamin D] 5,000 unit PO DAILY 05/10/20 [History] Cyanocobalamin (Vitamin B12) [Vitamin B12] 1 cap PO DAILY 05/10/20 [History] Furosemide 20 mg PO DAILY 05/10/20 [History] Glucosam/Chond-Msm1/C/Donta/Bor [Tzryosu-Wtcrk-[facility] Complex Cplt] 1 tab PO DAILY 05/10/20 [History] Isosorbide Mononitrate [Imdur] 30 mg PO DAILY 05/10/20 [History] Multivit with Iron,Minerals [Flintstones Complete] 1 cap PO DAILY 05/10/20 [History] [place]-3/DHA/Epa/Fish Oil [Fish Oil EC 1,000 MG Softgel] 1 cap PO DAILY 05/10/20 [History] Vitamin E 1 cap PO DAILY 05/10/20 [History] Metoprolol Succinate 25 mg PO DAILY 03/03/21 [History] Past Medical History HEENT History: Reports: Hard of Hearing, Impaired Vision 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, Pacemaker Other Cardiovascular History: CHF Respiratory History: Reports: COPD, SOB Gastrointestinal History: Reports: Chronic Diarrhea, GERD Musculoskeletal History: Reports: Osteoarthritis Neurological History: Reports: Headaches, Chronic Hematologic History: Reports: Anemia - Infectious Disease History Infectious Disease History: Reports: Chicken Pox, Influenza - Past Surgical History Musculoskeletal Surgical History: Reports: Shoulder Replacement, Shoulder Surgery Social & Family History - Family History Family Medical History: No Pertinent Family History - Caffeine Use Caffeine Use: Reports: Coffee - Recreational Drug Use Recreational Drug Use: No ED ROS GENERAL - Review of Systems Review Of Systems: Comprehensive ROS is negative, except as noted in HPI. Respiratory: Reports: Cough, Other (and chest congestion.) ED EXAM, GENERAL - Physical Exam Exam: See Below Respiratory/Chest: Rhonchi (scattered on expiration.) Course - Vital Signs Last Recorded V/S: Last Vital Signs Temp 98 F 03/03/21 15:56 Pulse 62 03/03/21 15:56 Resp 18 03/03/21 15:56 BP 135/78 03/03/21 15:59 Pulse Ox 95 03/03/21 15:56 - Orders/Labs/Meds Orders: Active Orders 24 hr Category Date Time Status Chest 1V Frontal [CR] Stat Exams 03/03/21 13:43 Taken Bamlanivimab 700 mg Med 03/03/21 14:45 Active Etesevimab [Etesevimab (EUA)] 1,400 mg Sodium Chloride 0.9% [Normal Saline] 100 ml IV ASDIRECTED Medication Orders Bamlanivimab 700 mg/Etesevimab 1,400 mg/ Sodium Chloride 160 mls @ 160 mls/hr IV ASDIRECTED SUELLEN Stop: 03/03/21 23:59 Last Admin: 03/03/21 15:03 Dose: 160 mls/hr Documented by: JESSICA Labs: Laboratory Tests 03/03/21 03/03/21 03/03/21 Range/Units 14:00 14:00 14:25 WBC 6.3 D (4.0-11.0) K/uL RBC 4.78 (4.50-6.50) M/uL Hgb 14.5 (13.0-18.0) g/dL Hct 41.6 (40.0-54.0) % MCV 87 (76-96) fL MCH 30.3 (27.0-32.0) pg MCHC 34.9 (31.0-35.0) g/dL RDW 12.2 (11.0-16.0) % Plt Count 196 (150-400) K/uL MPV 9.9 (6.0-10.0) fL Neut % (Auto) 63.9 (45.0-70.0) % Lymph % (Auto) 19.8 L (20.0-40.0) % [place] % (Auto) 12.0 H (3.0-10.0) % Eos % (Auto) 4.1 (1.0-5.0) % Baso % (Auto) 0.2 (0.0-0.5) % Neut # (Auto) 4.04 (2.00-7.50) K/uL Lymph # (Auto) 1.25 L (1.50-4.00) K/uL [place] # (Auto) 0.76 (0.20-0.80) K/uL Eos # (Auto) 0.26 (0.04-0.40) K/uL Baso # (Auto) 0.01 L (0.02-0.10) K/uL Sodium 139 (136-145) mmol/L Potassium 4.8 (3.5-5.1) mmol/L Chloride 104 (98-107) mmol/L Carbon Dioxide 27.5 (21.0-32.0) mmol/L Anion Gap 12.3 (5.0-15.0) mmol/L BUN 14 D (8-26) mg/dL Creatinine 1.00 (0.70-1.30) mg/dL Est Cr Clr Drug Dosing 44.42 mL/min Estimated GFR (MDRD) > 60 (>60) MLS/MIN BUN/Creatinine Ratio 14.0 (6-25) Glucose 95 (74-100) mg/dL Calcium 8.5 (8.5-10.1) mg/dL SARS-CoV-2 RNA (ELEANOR) Positive H (NEGATIVE) Meds: Medications Generic Name Dose Route Start Last Admin Trade Name Freq PRN Reason Stop Dose Admin Bamlanivimab 700 mg/ 160 mls @ 160 mls/hr 03/03/21 14:45 03/03/21 15:03 Etesevimab 1,400 mg/ Sodium IV 03/03/21 23:59 160 mls/hr Chloride ASDIRECTED SUELLEN Administration - Re-Assessments/Exams Free Text/Narrative Re-Assessment/Exam: 03/03/21 16:10 CXR shows increased markings mostly on the Rt side. Labs show he is Covid positive. Other labs are ok. I will treat him with BAM and his after talking to Pharmacy. And he is worried about his chest congestion and Hx of pneumonia. I will give him a Z-Barrera to take as well. He wants to go home, and I think that's reasonable. His V.S. are nml. He is to rest, use Tylenol at home as needed. OTC cough medicine alsp prn. Follow up with his PCP or here as needed with any questions or concerns. Departure - Departure Time of Disposition: 16:30 Disposition: Home, Self-Care 01 Condition: Good Clinical Impression: COVID-19 - Discharge Information *PRESCRIPTION DRUG MONITORING PROGRAM REVIEWED*: Yes *COPY OF PRESCRIPTION DRUG MONITORING REPORT IN PATIENT ALEXANDER: Yes Instructions: COVID-19, Bamlanivimab Solution for Injection Referrals: PCP,None [Primary Care Provider] - Forms: ED Department Discharge Sepsis Event Note (ED) - Evaluation Sepsis Screening Result: No Definite Risk - Focused Exam Vital Signs: Vital Signs Temp Pulse Resp BP Pulse Ox 03/03/21 15:59 135/78 03/03/21 15:56 98 F 62 18 95 03/03/21 15:32 97.2 F 76 18 120/70 95 03/03/21 13:43 97.8 F 92 18 133/67 95 - My Orders Last 24 Hours: My Active Orders 03/03/21 13:43 Chest 1V Frontal [CR] Stat 03/03/21 14:45 Bamlanivimab 700 mg Etesevimab [Etesevimab (EUA)] 1,400 mg Sodium Chloride 0.9% [Normal Saline] 100 ml IV ASDIRECTED - Assessment/Plan Last 24 Hours: My Active Orders 03/03/21 13:43 Chest 1V Frontal [CR] Stat 03/03/21 14:45 Bamlanivimab 700 mg Etesevimab [Etesevimab (EUA)] 1,400 mg Sodium Chloride 0.9% [Normal Saline] 100 ml IV ASDIRECTED
--- NOTE | 2021-03-04 10:03 | CR ---
Date of Service: 03/03/21 Clinical Data: Cough and congestion. AP CHEST: The patient has taken a very poor inspiration. Comparison is made to a prior exam dated 11/20/20. The heart size is normal. The cardiac pacer and pacer wires remain unchanged in position from the prior study. The pulmonary vasculature remains prominent. There is prominence of the proximal pulmonary arteries suggesting pulmonary hypertension. There is thickening of the minor fissure on the right. There is a linear density in the left lower lung consistent with linear atelectasis or fibrosis. There is subtle ground-glass opacity in the right perihilar region suggesting pneumonia. The lungs are otherwise clear. No pneumothorax. No pleural effusions. [id number] [facility]
== END 2021-03-03 16:17 | disposition home or self-care (01) ==
LOC: LB.ED 13:28
DX: U07.1 COVID-19 (principal); J44.9 Chronic obstructive pulmonary disease, unspecified; M19.90 Unspecified osteoarthritis, unspecified site; Z88.0 Allergy status to penicillin; Z88.7 Allergy status to serum and vaccine; Z79.82 Long term (current) use of aspirin; Z95.0 Presence of cardiac pacemaker; Z79.899 Other long term (current) drug therapy
CPT/HCPCS: 36415; 71045; 80048; 85025; 99283; A9270; M0245; Q0245; U0002

== ENCOUNTER 2021-05-25 09:32 | Emergency (ER) | payer MEDICARE ==
[2021-05-25 10:04] VITALS: BP 113/70; PULSE 91
== END 2021-05-25 11:21 | disposition home or self-care (01) ==
LOC: LB.ED 09:32
DX: R55 Syncope and collapse (principal); J44.9 Chronic obstructive pulmonary disease, unspecified; M19.90 Unspecified osteoarthritis, unspecified site; Z95.0 Presence of cardiac pacemaker; Z88.7 Allergy status to serum and vaccine; Z88.0 Allergy status to penicillin; Z79.82 Long term (current) use of aspirin
CPT/HCPCS: 36415; 80048; 85025; 93005; 99284-25

== ENCOUNTER 2021-08-10 21:43 | Inpatient (IN) | payer MEDICARE ==
[2021-08-10] MEDS ORDERED: Sodium Chloride 0.9% 10 ML Syringe FLUSH PRN (21:57)
[2021-08-10] MEDS ORDERED: Sodium Chloride 0.9% 1,000 ML IV SCH (22:00)
[2021-08-10] MEDS ORDERED: Sodium Chloride 0.9% 1,000 ML IV ONE (22:28)
[2021-08-10] MEDS: cefTRIAXone 1 GM in Sodium Chloride 0.9% 50 ML IV SCH (23:33)
[2021-08-10] MEDS: Acetaminophen 325 MG Tab PO PRN (23:45)
[2021-08-10] MEDS: Pantoprazole 40 MG Vial IVPUSH SCH (23:45)
[2021-08-10] MEDS ORDERED: Acetaminophen 325 MG Tab ONE (23:55)
[2021-08-11] MEDS: Enoxaparin 40 MG/0.4 ML Syringe SUBCUT SCH ×2 (00:06→10:47)
[2021-08-11] MEDS: Azithromycin 500 MG in Sodium Chloride 0.9% 250 ML IV SCH ×2 (00:06→23:27)
[2021-08-11] MEDS: Acetaminophen 325 MG Tab PO PRN ×2 (07:44→19:08)
[2021-08-11] MEDS ORDERED: Metoprolol Succinate 25 MG Tab.ER PO SCH (08:00)
[2021-08-11] MEDS ORDERED: Aspirin 81 MG Tab.Chew PO SCH (08:00)
[2021-08-11] MEDS ORDERED: Albuterol 8 GM Inhaler INH SCH (08:00)
[2021-08-11] MEDS ORDERED: Furosemide 20 MG Tab PO SCH (08:00)
[2021-08-11] MEDS ORDERED: Cyanocobalamin (Vitamin B12) 1,000 MCG Tab PO SCH (08:00)
[2021-08-11] MEDS ORDERED: Sodium Chloride 0.9% 1,000 ML IV SCH (08:00)
[2021-08-11] MEDS ORDERED: Furosemide 20 MG/2 ML VIAL IVPUSH ONE (18:31)
[2021-08-11] MEDS ORDERED: Albuterol/Ipratropium 3.0-0.5 MG/3 ML Neb Soln NEB PRN (18:34)
[2021-08-11] MEDS ORDERED: methylPREDNISolone Sodium Succinate 40 MG/1 ML SDV IVPUSH ONE (20:01)
[2021-08-11] MEDS ORDERED: Ondansetron 4 MG Tab.DIS PO ONE (20:07)
[2021-08-11] MEDS ORDERED: Ondansetron 4 MG Tab.DIS ONE (20:10)
[2021-08-11] MEDS ORDERED: Morphine 2 MG/ML SYRINGE IVPUSH ONE ×2 (20:29→21:06)
[2021-08-11] MEDS ORDERED: Morphine 2 MG/ML SYRINGE ONE (20:31)
[2021-08-11] MEDS ORDERED: Aspirin 81 MG Tab.Chew ONE (20:59)
[2021-08-11] MEDS ORDERED: Aspirin 81 MG Tab.Chew PO ONE (21:01)
[2021-08-11] MEDS ORDERED: Nitroglycerin 0.4 MG Tab.SL SL PRN (21:05)
[2021-08-11] MEDS ORDERED: Heparin Sodium 5,000 Units/ML Vial IVPUSH ONE (21:45)
[2021-08-11] MEDS ORDERED: Heparin Sodium/D5W 25,000 UNITS/500 ML BAG IV SCH (21:45)
[2021-08-11] MEDS: Pantoprazole 40 MG Vial IVPUSH SCH (23:21)
[2021-08-12] MEDS: cefTRIAXone 1 GM in Sodium Chloride 0.9% 50 ML IV SCH (00:38)
[2021-08-12 02:08] VITALS: BP 94/54; PULSE 70
== END 2021-08-12 04:25 | DRG 871 ==
LOC: LB.ED 21:43 → LB.MS 22:51 → UNDOADMIN 23:45 → LB.MS 23:45
PROVIDERS: ADMIT Physician Assistant; ATTEND Physician Assistant
DX: A41.9 Sepsis, unspecified organism (principal); I21.4 Non-ST elevation (NSTEMI) myocardial infarction; I24.9 Acute ischemic heart disease, unspecified; H54.7 Unspecified visual loss; H91.90 Unspecified hearing loss, unspecified ear; Z66 Do not resuscitate; K21.9 Gastro-esophageal reflux disease without esophagitis; M19.90 Unspecified osteoarthritis, unspecified site; I50.9 Heart failure, unspecified; G89.29 Other chronic pain; R51.9 Headache, unspecified; D64.9 Anemia, unspecified; Z20.822 Contact with and (suspected) exposure to COVID-19; Z88.7 Allergy status to serum and vaccine; J44.9 Chronic obstructive pulmonary disease, unspecified; Z96.619 Presence of unspecified artificial shoulder joint; Z79.82 Long term (current) use of aspirin; Z79.899 Other long term (current) drug therapy; Z95.0 Presence of cardiac pacemaker; Z86.16 Personal history of COVID-19; Z88.0 Allergy status to penicillin; Z88.8 Allergy status to other drugs, medicaments and biological substances
CPT/HCPCS: 36415; 71045; 71250; 74176; 80053; 81001; 83605; 83690; 84484; 85025; 87040 ×2; 87804 ×2; 93005; 99285; J0696; J7030 ×2; U0002; 51702; 80048; 80076; 83880; 85730; 93010; 97161-GP; 97165-GO; 97530-GP; A9270-GY; C9113; J0456; J1644; J1650; J1940; J2270; J2920; J7050; J7620; Q0162

== ENCOUNTER 2021-11-16 13:18 | Emergency (ER) | payer MEDICARE ==
[2021-11-16 15:08] VITALS: BP 122/55; PULSE 75
== END 2021-11-16 14:26 | disposition home or self-care (01) ==
LOC: LB.ED 13:18
DX: N13.9 Obstructive and reflux uropathy, unspecified (principal); J44.9 Chronic obstructive pulmonary disease, unspecified; Z88.7 Allergy status to serum and vaccine; Z88.0 Allergy status to penicillin; Z79.899 Other long term (current) drug therapy; Z79.82 Long term (current) use of aspirin
CPT/HCPCS: 51702; 99283

== ENCOUNTER 2021-11-16 20:13 | Emergency (ER) | payer MEDICARE ==
[2021-11-16 23:55] VITALS: BP 122/65; PULSE 67
== END 2021-11-16 21:10 | disposition home or self-care (01) ==
LOC: LB.ED 20:13
DX: N13.9 Obstructive and reflux uropathy, unspecified (principal); J44.9 Chronic obstructive pulmonary disease, unspecified; Z88.7 Allergy status to serum and vaccine; Z88.0 Allergy status to penicillin; Z79.899 Other long term (current) drug therapy; Z79.82 Long term (current) use of aspirin
CPT/HCPCS: 99281; 99283